=== PATIENT | male | born 1985 ===

== ENCOUNTER 2019-05-08 17:38 | Emergency (ER) | payer SELFPAY ==
[~2019-05-08] VITALS: Ht 175.3 cm; Wt 86.0 kg
[2019-05-08] MEDS ORDERED: ACETAMINOPHEN 325 MG TABLET PO ONE (19:45)
[2019-05-08] MEDS ORDERED: IBUPROFEN 400 MG TABLET PO ONE (19:45)
[2019-05-08] MEDS ORDERED: ValACYclovir HCL 500 MG TABLET PO ONE (19:45)
[2019-05-08] MEDS ORDERED: DiphenhydrAMINE HCL 25 MG CAPSULE PO ONE (20:00)
[2019-05-08 20:27] VITALS: BP 138/76
== END 2019-05-08 20:32 | disposition home or self-care (01) ==
LOC: EMS 17:42
DX: B02.9 Zoster without complications (principal)